=== PATIENT | male | born 1945 | race Two or more races ===

== ENCOUNTER 2020-06-26 11:06 | Emergency (ER) | payer MEDICARE ==
[~2020-06-26] VITALS: Ht 170.2 cm; Wt 56.3 kg
--- NOTE | 2020-06-26 11:25 | NUR ---
PATIENT WALKED BACK FROM TRIAGE WITH CHIEF C/O NOT BEING ABLE TO SEE OUT OF RIGHT EYE. PER PATIENT HE WOKE UP THIS MORNING AND WAS UNABLE TO SEE OUT OF HIS RIGHT EYE. PATIENT DENIES NORRIS, DIZZINESS, WEAKNESS, ALL OTHER NEURO INTACT. ACCOMPANIED BY DAUGHTER, MARQUISE, CALL LIGHT WITHIN REACH. Addendum: 06/26/20 at 1131 by HLARAKrystina PATIENT DENIES ANY TRAUMA. NO SWELLING OR OBVIOUS SIGNS OF TRAUMA NOTED ON EYE.
--- NOTE | 2020-06-26 11:30 | NUR ---
ERMD AT BEDSIDE FOR EVALUATION.
--- NOTE | 2020-06-26 11:46 | NUR ---
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
[2020-06-26] MEDS ORDERED: SODIUM CHLORIDE FLUSH 10ML SYR IVF ONE (12:00)
[2020-06-26 12:03] LABS: BASOPHILS % (AUTO) 1 % (0-1); EOSINOPHILS % (AUTO) 5 % (1-7); LYMPHOCYTES % (AUTO) 26 % (22-44); MEAN CORPUSCULAR HEMOGLOBIN 31.5 pg (27.5-34.5); MEAN CORPUSCULAR HGB CONC 34.1 g/dL (33.2-36.2); MEAN PLATELET VOLUME 7.3 fL (7.4-10.4); MONOCYTES % (AUTO) 6 % (2-9); NEUTROPHILS % (AUTO) 62 % (42-75); PLATELET COUNT 259 x10^3/uL (130-400); RED BLOOD COUNT 4.92 x10^6/uL (4.38-5.82); RED CELL DISTRIBUTION WIDTH 14.1 % (9.4-14.8)
[2020-06-26 12:09] LABS: ANION GAP 7 mmol/L (5-15); CHLORIDE 107 mmol/L (98-107)
[2020-06-26 12:10] LABS: CREATININE 0.91 mg/dL (0.7-1.3)
[2020-06-26 12:14] LABS: MD NO
--- NOTE | 2020-06-26 12:33 | NUR ---
PATIENT TO CT SCAN.
[2020-06-26] MEDS ORDERED: OMNIPAQUE 350 MG/ML, 75ML BOTTLE ONE (12:56)
--- NOTE | 2020-06-26 13:03 | NUR ---
TASK RN: AWAITING CT RESULTS. NO DISTRESS
--- NOTE | 2020-06-26 14:03 | NUR ---
ERMD AT BEDSIDE TO DISCUSS POC.
--- NOTE | 2020-06-26 14:39 | NUR ---
NOTIFIED BY MRI THAT SCAN WILL BE DELAYED X 1 HOUR DUE TO TECHNICAL ISSUES. ED MD MADE AWARE. PT MADE AWARE.
--- NOTE | 2020-06-26 14:59 | NUR ---
PATIENT SITTING IN EYE CHAIR, NADN, VSS, DAUGHTER AT SIDE, CALL LIGHT WITHIN REACH, NO FURTHER NEEDS AT THIS TIME. WAITING FOR MRI.
[2020-06-26 15:28] LABS: HCT (SEDRATE) 45.5 % (39.2-51.8)
--- NOTE | 2020-06-26 15:55 | NUR ---
PATIENT TO MRI.
--- NOTE | 2020-06-26 16:18 | NUR ---
PATIENT BACK FROM MRI, CONNECTED TO MONITOR, NADN, DAUGHTER AT BEDSIDE. WAITING FOR MRI RESULTS.
--- NOTE | 2020-06-26 17:37 | NUR ---
ERMD AT BEDSIDE TO DISCUSS POC, AND DISCHARGE DISPO.
--- NOTE | 2020-06-26 18:05 | NUR ---
JAIME SPOKE WITH OPTHAMOLOGY MD. OPTHAMOLOGY TO COME SEE PATIENT.
--- NOTE | 2020-06-26 18:10 | NUR ---
OKAY FOR PATIENT TO EAT PER ERMD.
[2020-06-26 18:15] VITALS: BP 131/72
--- NOTE | 2020-06-26 18:18 | NUR ---
PATIENT AMBULATED TO BATHROOM WITH STEADY GAIT, DAUGHTER BACK IN ROOM WITH FOOD. WAITING FOR OPTHAMOLOGY.
--- NOTE | 2020-06-26 18:31 | NUR ---
FOOD TRAY ORDERED.
--- NOTE | 2020-06-26 18:59 | NUR ---
REPORT FROM LUIS ALLEN. PT WAITING TO BE EVALUATED BY OPTHOMOLOGY
--- NOTE | 2020-06-26 19:32 | NUR ---
OPTHO AT BEDSIDE
--- NOTE | 2020-06-26 19:55 | NUR ---
Patient given discharge instructions and they have confirmed that they understand the instructions. Patient ambulatory with steady gait.
== END 2020-06-26 19:58 | disposition home or self-care (01) ==
LOC: ED 16:52
DX: H43.11 Vitreous hemorrhage, right eye (principal); H54.61 Unqualified visual loss, right eye, normal vision left eye; E11.9 Type 2 diabetes mellitus without complications
CPT/HCPCS: 36415; 70450; 70481; 70551; 80048; 82040; 85025; 85651; 86140; 99285; Q9967